=== PATIENT | female | born 1960 | race Caucasian/White ===

== ENCOUNTER → 2017-03-28 | Outpatient (CLI) | payer BC ==
[~2017-03-28] MED LIST: CYCL10TA9 PO; LISI-556 PO; MECL25TA3 PO; MULT-974 PO; ONDA4TAB8 PO; SCOP1PAT TD; TRAM-42 PO
== END ==
LOC: RAD 17:56
PROVIDERS: ATTEND Family Medicine
DX: R05 Cough (principal)

== ENCOUNTER → 2017-06-29 | Outpatient (CLI) | payer BC ==
[~2017-06-29] MED LIST changes: +DOXY100T2 PO; +IOHEXOL 350 MG/ML 100 ML (OMNIPAQUE 350) VIAL IV ONE; +NS 250 ML (IVPB) BAG IV ONE; -SCOP1PAT TD; +SCOP1PAT11 TD
[2017-06-29 08:26] LABS: BUN/CREATININE RATIO 19; CREATININE SERUM 0.83 MG/DL (0.60-1.30); GFR ESTIMATED > 60
--- NOTE | 2017-06-29 09:04 | Diagnostic Imaging Report ---
PROCEDURE: CT abdomen with contrast only. TECHNIQUE: Multiple contiguous axial images were obtained through the abdomen after the administration of intravenous contrast. INDICATION: Left-sided pain for one week. COMPARISON: No prior studies are available for comparison. FINDINGS: The lung bases are clear. No discrete liver mass is identified. Gallbladder is surgically absent. Pancreas and spleen are unremarkable. No adrenal mass is identified. Kidneys are unremarkable. Aorta is non-aneurysmal. Small and large bowel loops are normal caliber. There is no ascites. Postsurgical changes to the anterior abdominal wall are noted. There appears to be abdominal wall mesh material present. There is some mild inflammatory stranding in the subcutaneous tissues superficial to the mesh. There is also minimal stranding in the tissues just deep to the mesh in the anterior abdomen. No fluid collection is seen. Bony structures are nonacute. IMPRESSION: Post surgical changes of ventral hernia repair with abdominal mesh. There are some inflammatory changes surrounding the mesh but no fluid collection is detected. No definite recurrent hernia is seen. Dictated by: Dictated on workstation # [id number]
== END ==
LOC: RAD 07:52
PROVIDERS: ATTEND Nurse Practitioner Family
DX: R10.9 Unspecified abdominal pain (principal); Z98.890 Other specified postprocedural states
CPT/HCPCS: 36415; 74160; 82565; 84520

== ENCOUNTER 2017-08-04 10:27 | Emergency (ER) | payer BC ==
[~2017-08-04] VITALS: Ht 160 cm; Wt 97.5 kg
[~2017-08-04 10:27] MED LIST changes: -DOXY100T2 PO; -IOHEXOL 350 MG/ML 100 ML (OMNIPAQUE 350) VIAL IV ONE; -NS 250 ML (IVPB) BAG IV ONE
--- OUTSIDE RECORDS SUMMARY | 2017-08-04 10:33 | XMS REPORT | Continuity of Care Document ---
Author Author [facility] Organization [facility] Address Unknown Phone Unavailable Allergies Active Description Code Type Severity Reaction Onset Reported/Identified Relationship to Patient Clinical Status Yes amoxicillin [id number] Drug Allergy Mild NAUSEA 09/24/2015 Yes clavulanic acid [id number] Drug Allergy Mild NAUSEA 09/24/2015 Yes clindamycin [id number] Drug Allergy Mild NAUSEA 09/24/2015 Medications There is no data. Problems Date Dx Coded Attending Type Code Diagnosis Diagnosed By 05/13/2015 JAIME CARLSON DO Ot I65.23 09/24/2015 BONNIE COOK DO Ot G89.29 OTHER CHRONIC PAIN 09/24/2015 BONNIE COOK DO Ot I10 ESSENTIAL (PRIMARY) HYPERTENSION 09/24/2015 BONNIE COOK DO Ot M50.32 OTHER CERVICAL DISC DEGENERATION, MID-CE 09/24/2015 BONNIE COOK DO Ot R11.0 NAUSEA 09/24/2015 BONNIE COOK DO Ot R42 DIZZINESS AND GIDDINESS 09/24/2015 BONNIE COOK DO Ot Z79.899 OTHER [facility] (CURRENT) DRUG THERAPY 11/01/2015 BONNIE COOK DO Ot G89.29 OTHER CHRONIC PAIN 11/01/2015 BONNIE COOK DO Ot H81.10 BENIGN PAROXYSMAL VERTIGO, UNSPECIFIED E 11/01/2015 BONNIE COOK DO Ot I10 ESSENTIAL (PRIMARY) HYPERTENSION 11/01/2015 BONNIE COOK DO Ot M50.32 OTHER CERVICAL DISC DEGENERATION, MID-CE 11/01/2015 BONNIE COOK DO Ot R11.0 NAUSEA 11/01/2015 BONNIE COOK DO Ot R42 DIZZINESS AND GIDDINESS 11/01/2015 BONNIE COOK DO Ot Z79.899 OTHER [facility] (CURRENT) DRUG THERAPY 12/10/2015 BONNIE COOK DO Ot G89.29 OTHER CHRONIC PAIN 12/10/2015 BONNIE COOK DO Ot I10 ESSENTIAL (PRIMARY) HYPERTENSION 12/10/2015 BONNIE COOK DO Ot M50.32 OTHER CERVICAL DISC DEGENERATION, MID-CE 12/10/2015 BONNIE COOK DO Ot R11.0 NAUSEA 12/10/2015 JOEY ACEVES BONNIE Fisher Ot R42 DIZZINESS AND GIDDINESS 12/10/2015 JOEY ACEVES BONNIE Fisher Ot Z79.899 OTHER PON[employer]GER (CURRENT) DRUG THERAPY 03/29/2017 ORENDER DO, JAIME S Ot R05 COUGH 03/29/2017 ORENDER DO, JAIME S Ot I65.23 OCCLUSION AND STENOSIS OF BILATERAL GALDAMEZ 03/29/2017 ORENDER DO, JAIME S Ot R05 COUGH 06/28/2017 ORENDER DO, JAIME S Ot I65.23 OCCLUSION AND STENOSIS OF BILATERAL GALDAMEZ 06/28/2017 ORENDER DO, JAIME S Ot R05 COUGH 07/02/2017 JEET ESCOBAR APRN Ot R10.9 UNSPECIFIED ABDOMINAL PAIN 07/02/2017 JEET ESCOBAR APRN Ot Z98.890 OTHER SPECIFIED POSTPROCEDURAL STATES 07/11/2017 JEET ESCOBAR APRN Ot R10.9 UNSPECIFIED ABDOMINAL PAIN 07/11/2017 JEET ESCOBAR MANAGER OF FINANCIAL Ot Z98.890 OTHER SPECIFIED POSTPROCEDURAL STATES Procedures There is no data. Results Test Result Range [id number] - 06/29/17 08:03 Serum or plasma urea nitrogen measurement (mass/volume) 16 mg/dL 7-18 Serum or plasma creatinine measurement (mass/volume) 0.83 mg/dL 0.60-1.30 Serum or plasma urea nitrogen/creatinine mass ratio 19 NRG Serum or plasma creatinine measurement with calculation of estimated glomerular filtration rate > NRG Encounters ACCT No. Visit Date/Time Discharge Status Pt. Type Provider Facility Loc./Unit Complaint [id number] 06/29/2017 07:52:00 06/29/2017 23:59:59 CLS Outpatient JEET ESCOBAR MANAGER OF FINANCIAL [facility] RAD ABD PAIN,POSSIBLE HERNIA [id number] 03/28/2017 17:56:00 03/28/2017 23:59:59 CLS Outpatient JAIME CARLSON DO [facility] RAD POSS PNEUMONIA [id number] 03/28/2017 17:52:00 03/28/2017 17:52:00 CAN Preadmit MAYLEWIS SALVADOR DO [facility] RAD Z12.31 SCREENING MAMMO [id number] 09/24/2015 08:23:00 09/24/2015 11:51:00 DIS Emergency BONNIE COOK DO [facility] ER DIZZINESS/NECK PAIN [id number] 04/27/2015 08:47:00 04/27/2015 23:59:59 CLS Outpatient JAIME CARLSON DO [facility] RAD R CAROTID BRUIT
[2017-08-04 10:50] VITALS: BP 194/96
[2017-08-04] MEDS ORDERED: LACTATED RINGERS 1,000 ML IV ONE ×2 (11:42→12:39)
[2017-08-04] MEDS ORDERED: ONDANSETRON 4 MG/2 ML (SDV) Z0FRAN IVP ONE ×2 (11:45→13:15)
[2017-08-04 12:08] LABS: BASOPHILS % (AUTO) 0 % (0-10); EOSINOPHILS # (AUTO) 0.1 10^3/uL (0.0-0.3); EOSINOPHILS % (AUTO) 1 % (0-10); HEMATOCRIT 39 % (35-52); HEMOGLOBIN 13.3 G/DL (11.5-16.0); LYMPHOCYTES # (AUTO) 1.7 X 10^3 (1.0-4.0); LYMPHOCYTES % (AUTO) 17 % (12-44); MEAN CORPUSCULAR HEMOGLOBIN 31 PG (25-34); MEAN CORPUSCULAR HGB CONC 35 G/DL (32-36); MEAN CORPUSCULAR VOLUME 91 FL (80-99); MEAN PLATELET VOLUME 10.2 FL (7.4-10.4); MONOCYTES # (AUTO) 0.7 X 10^3 (0.0-1.0); MONOCYTES % (AUTO) 7 % (0-12); NEUTROPHILS # (AUTO) 7.6 X 10^3 (1.8-7.8); NEUTROPHILS % (AUTO) 75 % (42-75); PLATELET COUNT 308 10^3/uL (130-400); RED BLOOD COUNT 4.23 10^6/uL (4.35-5.85); RED CELL DISTRIBUTION WIDTH 13.3 % (10.0-14.5); WHITE BLOOD COUNT 10.1 10^3/uL (4.3-11.0)
[2017-08-04] MEDS ORDERED: DOXY100T2 PO (12:08)
[2017-08-04 12:30] LABS: ALANINE AMINOTRANSFERASE 19 U/L (0-55); ALKALINE PHOSPHATASE 77 U/L (40-136); AMYLASE 38 U/L (25-125); BILIRUBIN,TOTAL 0.7 MG/DL (0.1-1.0); BUN/CREATININE RATIO 25; CALCIUM 9.5 MG/DL (8.5-10.1); CARBON DIOXIDE 26 MMOL/L (21-32); CHLORIDE 106 MMOL/L (98-107); CREATININE SERUM 0.95 MG/DL (0.60-1.30); GFR ESTIMATED 60; GLUCOSE 111 MG/DL (70-105); LIPASE 17 U/L (8-78); PHOSPHORUS 2.6 MG/DL (2.3-4.7); SODIUM 142 MMOL/L (135-145); TOTAL PROTEIN 7.6 GM/DL (6.4-8.2)
[2017-08-04 12:47] LABS: BILIRUBIN,URINE NEGATIVE (NEGATIVE); CLARITY,URINE CLEAR; COLOR,URINE YELLOW; GLUCOSE, URINE (UA) NEGATIVE (NEGATIVE); KETONES,URINE NEGATIVE (NEGATIVE); LEUKOCYTE ESTERASE ,URINE NEGATIVE (NEGATIVE); NITRITE,URINE NEGATIVE (NEGATIVE); PH,URINE 5 (5-9); PROTEIN,URINE NEGATIVE (NEGATIVE); UROBILINOGEN,URINE NORMAL (NORMAL)
[2017-08-04 12:55] LABS: BACTERIA,URINE NEGATIVE /HPF; SQUAMOUS EPITHELIAL CELL,UR 0-2 /HPF
[2017-08-04] MEDS ORDERED: ONDA4TAB8 PO (13:51)
--- NOTE | 2017-08-04 13:51 | ED General ---
General Chief Complaint: General Problems/Pain Stated Complaint: HURTING, NAUSEA, DIAG TICK DISEASE Nursing Triage Note: PT TO ROOM 10 PT CO OF MENESES, NAUSEA, BURNING SENSATION OF NECK, UPPER BACK AND SHOULDERS, PT HAS BEEN RECENTLY DX W ERYCHLIOSIS Nursing Sepsis Screen: No Definite Risk Source of Information: Patient History of Present Illness Date Seen by Provider: Aug 04, 2017 Time Seen by Provider: 11:38 Initial Comments PT STATES SHE WAS DX WITH EHRLICHIOSIS ON 07/23/17 AND WAS STARTED ON DOXYCYCLINE STATE THAT FOR THE LAST 2 DAYS SHE HAS HAD NAUSEA, HEADACHE, BURNING SENSATION TO UPPER BACK AND CHEST--STATES IT FEELS LIKE A SUNBURN-FEELS HOT STATES SHE HAS BEEN ON VACATION RECENTLY, HAS BEEN SLEEPING ALOT STATES SHE HAS "FELT BAD FOR A LONG TIME" --TIRED ALL THE TIME HAS HAD A LOW GRADE FEVER OF 100 FOR THE LAST COUPLE OF DAYS HAS HAD SLIGHT BLURRY VISION OFF AND ON STATES SHE HAS BEEN TAKING MECLIZINE WITHOUT RELIEF--STATES SHE HAS NOT BEEN DIZZY AT ANY TIME WITH THIS, BUT HAS HISTORY OF VERTIGO HAS BEEN DRINKING WATER AND HAD CEREAL THIS AM. NO KNOWN SICK CONTACTS WITH SAME. NO HISTORY OF SIMILAR PCP: DR. [facility]ON[facility] Allergies and Home Medications Allergies Coded Allergies: amoxicillin (Verified Allergy, Mild, NAUSEA, 09/24/15) clavulanic acid (Verified Allergy, Mild, NAUSEA, 09/24/15) clindamycin (Verified Allergy, Mild, NAUSEA, 09/24/15) Home Medications Doxycycline Hyclate 100 Mg Tablet, 100 MG PO BID, (Reported) Lisinopril 5 Mg Tablet, 5 MG PO BID, (Reported) Multivitamin 1 Each Tablet, 1 EACH PO DAILY, (Reported) Ondansetron 4 Mg Tab.rapdis, 4 MG PO Q4H Prescribed by: BONNIE COOK on 08/04/17 1351 Patient Home Medication List Home Medication List Reviewed: Yes Review of Systems Constitutional: see HPI; No chills, No diaphoresis, No dizziness; fever, malaise, weakness EENTM: see HPI Respiratory: no symptoms reported Cardiovascular: no symptoms reported Gastrointestinal: see HPI; No abdominal pain, No constipation, No diarrhea, No loss of appetite; nausea; No vomiting Genitourinary: no symptoms reported Musculoskeletal: see HPI Skin: see HPI Psychiatric/Neurological: See HPI Hematologic/Lymphatic: No Symptoms Reported Immunological/Allergic: no symptoms reported Past Bazmjia-Wwlmcl-Wmtceq Hx Patient Social History Alcohol Use: Denies Use Recreational Drug Use: No Smoking Status: Never a Smoker Recent Foreign Travel: No Contact w/Someone Who Travel: No Recent Infectious Disease Expo: No Recent Hopitalizations: No Physical Abuse: No Sexual Abuse: No Seasonal Allergies Seasonal Allergies: No Past Medical History Surgeries: Yes (SPLENECTOMY, HIATAL HERNIA; X 2; LEFT KNEE; RIGHT KNEE REPLACEMENT) Abdominal, Section, Gallbladder, Joint Replacement, Orthopedic, Tubal Ligation Respiratory: No Cardiac: Yes Hypertension Neurological: Yes Vertigo 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: Tubal Ligation, Menopausal Genitourinary: No Gastrointestinal: No Musculoskeletal: Yes (CHRONIC NECK/UPPER BACK/TRAPEZIUS MUSCLE PAIN THAT RADIATES DOWN RIGHT ARM; BULGING DISCS IN NECK) Arthritis, Chronic Back Pain HEENT: No Cancer: No Psychosocial: No Nursing Suicide Risk Score: 0 Physical Exam Vital Signs Capillary Refill : Less Than 3 Seconds General Appearance: No Apparent Distress, WD/WN HEENT: PERRL/EOMI, TMs Normal, Normal ENT Inspection, Pharynx Normal Neck: Full Range of Motion, Normal Inspection, Non Tender, Supple Respiratory: Normal Breath Sounds, No Accessory Muscle Use, No Respiratory Distress Cardiovascular: Regular Rate, Rhythm, No Edema, No JVD, No Murmur, Normal Peripheral Pulses Gastrointestinal: Normal Bowel Sounds, No Organomegaly, No Pulsatile Mass, Non Tender, Soft Back: Normal Inspection, No CVA Tenderness, No Vertebral Tenderness Extremity: Normal Capillary Refill, Normal Inspection, Normal Range of Motion, Non Tender, No Calf Tenderness, No Pedal Edema Neurologic/Psychiatric: Alert, Oriented x3, No Motor/Sensory Deficits, Normal Mood/Affect, filter tank tender II-XII Norm as Tested Skin: Normal Color, Warm/Dry Progress/Results/Core Measures Suspected Sepsis Recent Fever Within 48 Hours: No Infection Criteria Present: None New/Unexplained Altered Menta: No Sepsis Screen: No Definite Risk SIRS Temperature:97.9 Pulse: 80 Respiratory Rate: 18 Blood Pressure 146 /108 Mean: 121 Results/Orders Lab Results My Orders Medications Given in ED Vital Signs/I&O Capillary Refill : Less Than 3 Seconds Blood Pressure Mean: 121 Progress Note : Progress Note FEELS BETTER AT DISMISSAL UNEVENTFUL ER STAY ECG Initial ECG Impression Date: Aug 04, 2017 Initial ECG Impression Time: 11:52 Initial ECG Rate: 76 Initial ECG Rhythm: Normal Sinus Departure Impression Primary Impression: Dehydration Disposition: 01 HOME, SELF-CARE Condition: Improved Departure-Patient Inst. Referrals: JAIME CARLSON DO (PCP/Family) Primary Care Physician Patient Instructions: Dehydration, Adult (DC) Add. Discharge Instructions: LOTS OF CLEAR LIQUIDS--WATER, BROTH, JELLO, GATORADE BRATS DIET--BANANAS, RICE, APPLESAUCE, TOAST, SALTINES FOLLOW UP WITH DR. CARLSON ON SUNDAY FOR FURTHER CARE RETURN TO ER IF WORSE All discharge instructions reviewed with patient and/or family. Voiced understanding. Scripts Ondansetron (Zofran Odt) 4 Mg Tab.rapdis 4 MG PO Q4H for Nausea/Vomiting, #10 TAB Prov: BONNIE COOK DO 08/04/17 BONNIE COOK DO Aug 04, 2017 13:51
[2017-08-04 14:36] VITALS: BP 133/53
== END 2017-08-04 14:36 | disposition home or self-care (01) ==
LOC: EDUNIT# 10:27 → ER 10:29
DX: E86.0 Dehydration (principal); I10 Essential (primary) hypertension; Z87.59 Personal history of other complications of pregnancy, childbirth and the puerperium; Z98.51 Tubal ligation status; Z88.1 Allergy status to other antibiotic agents; Z88.8 Allergy status to other drugs, medicaments and biological substances
CPT/HCPCS: 36415; 80053; 81000; 82150; 83690; 83735; 84100; 84484; 85025; 85730; 93005; 96361; 96374; 96376

== ENCOUNTER → 2019-01-08 | Outpatient (CLI) | payer BC ==
[~2019-01-08] MED LIST changes: +DOXY100T2 PO
[2019-01-08 10:45] VITALS: BP 179/84
--- NOTE | 2019-01-08 12:05 | Diagnostic Imaging Report ---
INDICATION: PICC line placement. COMPARISON: 03/28/2017 TECHNIQUE: Single frontal radiograph of the chest dated 01/08/2019 FINDINGS: Left-sided PICC line is in place. The distal tip is difficult to visualize though may terminate within the lower aspect of the superior vena cava. There is no evidence of a pneumothorax. The cardiac silhouette is within normal limits in size. No significant pulmonary vascular congestion. The lungs are clear. No pleural effusion. No pneumothorax. No acute osseous abnormality. IMPRESSION: Left-sided PICC line is in place with the distal tip possibly terminating within the lower aspect of the superior vena cava. No pneumothorax. Definitive positioning could be confirmed with oblique and/or lateral radiographs. Dictated by: Dictated on workstation # [id number]
--- NOTE | 2019-01-08 12:50 | Diagnostic Imaging Report ---
INDICATION: Evaluate PICC line. COMPARISON: Earlier same day. FINDINGS: Multiple frontal radiographic views of the chest were obtained. Indwelling left upper extremity PICC line is identified with the tip in the low SVC near the cavoatrial junction. Cardiac silhouette and pulmonary vasculature are within normal limits. Lungs remain clear. There is no focal consolidation, large effusion, nor pneumothorax. Osseous structures show no gross acute abnormalities. IMPRESSION: 1. Left upper extremity PICC line with tip in the low SVC. 2. No acute cardiopulmonary process. Dictated by: Dictated on workstation # [id number]
== END ==
LOC: SDC 10:29
PROVIDERS: ATTEND Internal Medicine
DX: M00.9 Pyogenic arthritis, unspecified (principal); Z95.9 Presence of cardiac and vascular implant and graft, unspecified
CPT/HCPCS: 36569; 71045; 76937

== ENCOUNTER → 2019-01-09 | Outpatient (CLI) | payer BC ==
[2019-01-09 10:47] LABS: BUN/CREATININE RATIO 17; CALCIUM 8.7 MG/DL (8.5-10.1); CARBON DIOXIDE 26 MMOL/L (21-32); CHLORIDE 104 MMOL/L (98-107); CREATININE SERUM 0.77 MG/DL (0.60-1.30); GFR ESTIMATED > 60; GLUCOSE 111 MG/DL (70-105); POTASSIUM 3.3 MMOL/L (3.6-5.0); SODIUM 141 MMOL/L (135-145)
[2019-01-09 10:54] LABS: VANCOMYCIN,TROUGH 11.3 UG/ML (10.0-20.0)
== END ==
LOC: LABNPT 10:24
PROVIDERS: ATTEND Orthopaedic Surgery
DX: Z01.89 Encounter for other specified special examinations (principal)
CPT/HCPCS: 80048; 80202

== ENCOUNTER 2019-02-20 09:22 | Outpatient (CLI) | payer BC ==
[~2019-02-20] VITALS: Ht 160 cm; Wt 97.5 kg
[2019-02-20 09:45] VITALS: BP 164/78
== END 2019-02-20 09:45 | disposition home or self-care (01) ==
LOC: SDC 09:22
PROVIDERS: ATTEND Orthopaedic Surgery
DX: Z45.2 Encounter for adjustment and management of vascular access device (principal)

== ENCOUNTER → 2019-04-16 | Outpatient (CLI) | payer BC ==
[~2019-04-16] MED LIST changes: +RT-ALBUTEROL SULF 2.5 MG/3 ML PRE-MIX VIAL INH ONE
--- NOTE | 2019-04-16 16:14 | Diagnostic Imaging Report ---
EXAMINATION: CT Chest without contrast. TECHNIQUE: Multiple contiguous axial images were obtained through the chest without the use of intravenous contrast. All CT scans use one or more of the following dose optimizing techniques: automated exposure control, MA and/or KvP adjustment based on a patient size and exam type, or iterative reconstruction. HISTORY: COUGH COMPARISON: None available. FINDINGS: There is no edema or pneumonia. No pleural effusion. No pneumothorax. No suspicious nodules. Heart size is normal. There are mild coronary artery calcifications. No pericardial effusion. Aorta is normal in caliber. There is no axillary or supraclavicular lymphadenopathy. There is no mediastinal lymphadenopathy. Limited views of the upper abdomen show an absent gallbladder. There are no suspicious osseous lesions. IMPRESSION: 1. Clear lungs. Dictated by: Dictated on workstation # [id number]
== END ==
LOC: RT 14:37
PROVIDERS: ATTEND Family Medicine
DX: R05 Cough (principal)
CPT/HCPCS: 71250; 94060; 94726; 94729

== ENCOUNTER → 2020-01-16 | Outpatient (CLI) | payer BC ==
[~2020-01-16] MED LIST changes: -RT-ALBUTEROL SULF 2.5 MG/3 ML PRE-MIX VIAL INH ONE
--- NOTE | 2020-01-16 12:59 | Diagnostic Imaging Report ---
PROCEDURE: US venous upper extremity left. TECHNIQUE: Multiple realtime grayscale images were obtained of left upper extremity in various projections. Additional spectral analysis and color Doppler duplex images were also obtained. INDICATION: Left upper extremity pain. FINDINGS: Left internal jugular vein is patent. Left subclavian and axillary veins are patent. The brachial vein is patent. The basilic and cephalic veins as well as radial and ulnar veins are patent. No thrombus is seen. No fluid collections are identified. IMPRESSION: No evidence of left upper extremity DVT. Dictated by: Dictated on workstation # [id number]
== END ==
LOC: RAD 11:34
PROVIDERS: ATTEND Nurse Practitioner Family
DX: M79.602 Pain in left arm (principal)

== ENCOUNTER 2021-02-03 13:07 | Outpatient (CLI) | payer BC ==
[~2021-02-03] VITALS: Ht 160 cm; Wt 95.3 kg
[2021-02-03 13:00] VITALS: BP 144/99
[~2021-02-03 13:07] MED LIST changes: +CYCL10TA25 PO; -CYCL10TA9 PO; -LISI-556 PO; +LISI5TAB20 PO; +SCOP1PAT10 TD; -SCOP1PAT11 TD
[2021-02-03] MEDS ORDERED: ACETAMINOPHEN 500 MG TAB (TYLENOL) PO PRN (13:30)
[2021-02-03] MEDS ORDERED: EPINEPHrine INJECTION 1 MG/ML AMP IM PRN (13:30)
[2021-02-03] MEDS ORDERED: ONDANSETRON 4 MG/2 ML (SDV) Z0FRAN IV PRN (13:30)
[2021-02-03] MEDS ORDERED: diphenhydrAMINE 50 MG/ML INJ (BENADRYL) IV PRN (13:30)
[2021-02-03] MEDS ORDERED: BAMLANIVIMAB 700 MG/ETESEVIMAB 1,400 MG IN NS IV ONE ×3 (13:30)
[2021-02-03 14:26] VITALS: BP 140/72
== END 2021-02-03 15:10 | disposition home or self-care (01) ==
LOC: INFUSION 13:07
PROVIDERS: ATTEND Nurse Practitioner Family
DX: U07.1 COVID-19 (principal)